=== PATIENT | male | born 1950 | race Two or more races ===

== ENCOUNTER → 2018-03-15 | Outpatient (CLI) | payer MEDICARE, BC | END | disposition home or self-care (01) | LOC: Rad HDHVI 16:04 | PROVIDERS: ATTEND Internal Medicine Cardiovascular Disease | DX: R06.02 Shortness of breath (principal) | CPT/HCPCS: 93306 ==

== ENCOUNTER 2021-05-25 22:59 | Inpatient (IN) | payer MEDICARE ==
[~2021-05-25] VITALS: Ht 172.7 cm; Wt 92.5 kg
[~2021-05-25 22:59] MED LIST: ALLO300T2 PO; ALPR0.254 PO; AMIO200T33 PO; APIX5TAB PO; ATOR-47 PO; CELE100C82 PO; FENO145T27 PO; FINA5TAB4 PO; INDO25CA18 PO; NITR1SPR TL; RAMI5CAP40 PO; SERT50TA19 PO; TAMS0.4C36 PO; TRAM50TA2 PO; ZOLP10TA6 PO
[2021-05-25] MEDS ORDERED: NITROGLYCERIN 0.2MG/HR TOPICAL PATCH TD ONE (23:30)
[2021-05-25 23:51] LABS: Basophils # (auto) 0.1 10 ^3/uL (0-0.2); Eosinophils # (auto) 0.3 10 ^3/uL (0-0.8); Eosinophils % (auto) 3.5 % (0.0-7.0); Hemoglobin 13.5 g/dL (13.5-17.5); Lymphocytes # (auto) 1.4 10 ^3/uL (0.4-5.4); Lymphocytes % (auto) 18.3 % (10.0-50.0); Mean Corpuscular Hemoglobin 29.9 pg (28.0-32.0); Mean Corpuscular Volume 90.6 fL (80.0-100.0); Monocytes # (auto) 0.5 10 ^3/uL (0-1.3); Monocytes % (auto) 6.1 % (0.0-12.0); Neutrophils # (auto) 5.4 10 ^3/uL (1.6-8.6); Neutrophils % (auto) 71.1 % (37.0-80.0); Red Blood Cells 4.52 10^6/uL (4.5-5.90); Red Cell Distribution Width 15.2 % (11.8-14.3); White Blood Cell 7.6 10^3/uL (4.4-10.8)
[2021-05-25 23:53] LABS: Albumin 3.5 g/dL (3.4-5.0); Anion Gap 6 (5-15); Blood Urea Nitrogen 35 mg/dL (7-18); Calcium 9.1 mg/dL (8.5-10.1); Carbon Dioxide 25 mmol/L (21-32); Chloride 105 mmol/L (98-107); Glucose 103 mg/dL (74-106); Magnesium 2.4 mg/dL (1.6-2.6); Potassium 4.6 mmol/L (3.5-5.1); Sodium 136 mmol/L (136-145)
[2021-05-25 23:57] LABS: INR 1.16 (0.9-1.15); Partial Thromboplastin Time 26.5 sec (23.6-33.0)
[2021-05-25 23:59] LABS: Alanine Aminotransferase 14 U/L (16-61); Alkaline Phosphatase 43 U/L (45-117); Aspartate Aminotransferase 17 U/L (15-37); Bilirubin, Total 0.6 mg/dL (0.2-1.0); GFR African American 55 mL/min; GFR Non-African American 46 mL/min
[2021-05-26] MEDS ORDERED: PANTOPRAZOLE 40 MG/10 ML VIAL INJ IV ONE (15:45)
[2021-05-26] MEDS ORDERED: NITROGLYCERIN 0.4 MG SL TAB SL PRN (15:45)
[2021-05-26] MEDS ORDERED: MORPHINE SULFATE INJECTION 2 MG/ML SYRG IV PRN ×2 (15:45)
[2021-05-26] MEDS ORDERED: ONDANSETRON HCL 4 MG/2 ML VIAL IV PRN (15:45)
[2021-05-26] MEDS ORDERED: ALPRAZolam 0.25 MG TAB PO PRN (15:45)
[2021-05-26] MEDS: HYDROcodone-ACET 5/325MG TAB PO PRN (17:11)
[2021-05-26] MEDS: TAMSULOSIN HYDROCHLORIDE 0.4 MG CAP PO SCH (18:34)
[2021-05-26] MEDS: APIXABAN 2.5 MG TAB PO SCH (21:11)
[2021-05-26] MEDS: ATORVASTATIN 20 MG TAB PO SCH (21:11)
[2021-05-26] MEDS: ACETAMINOPHEN 500 MG TAB PO PRN (21:18)
[2021-05-27] VITALS (7 sets, daily range): BP systolic 105–144; BP diastolic 70–88
[2021-05-27] MEDS ORDERED: ADENOSINE 78 MG in GIVE UN-DILUTED 0 ML IV STA (07:20)
[2021-05-27 07:40] LABS: Basophils # (auto) 0.1 10 ^3/uL (0-0.2); Basophils % (auto) 0.9 % (0.0-2.0); Eosinophils # (auto) 0.5 10 ^3/uL (0-0.8); Eosinophils % (auto) 6.1 % (0.0-7.0); Hematocrit 39.6 % (41.0-53.0); Hemoglobin 13.3 g/dL (13.5-17.5); Lymphocytes # (auto) 1.5 10 ^3/uL (0.4-5.4); Lymphocytes % (auto) 18.5 % (10.0-50.0); Mean Corpuscular Hemoglobin 30.5 pg (28.0-32.0); Mean Corpuscular Hgb Conc. 33.5 g/dL (32.0-36.0); Mean Corpuscular Volume 91.1 fL (80.0-100.0); Monocytes # (auto) 0.5 10 ^3/uL (0-1.3); Monocytes % (auto) 6.4 % (0.0-12.0); Neutrophils # (auto) 5.6 10 ^3/uL (1.6-8.6); Neutrophils % (auto) 68.1 % (37.0-80.0); Nucleated Red Blood Cells % 0.1 %; Red Blood Cells 4.35 10^6/uL (4.5-5.90); Red Cell Distribution Width 15.3 % (11.8-14.3); White Blood Cell 8.2 10^3/uL (4.4-10.8)
[2021-05-27 08:22] LABS: BUN/Creatinine Ratio 29.9; Potassium 4.9 mmol/L (3.5-5.1)
[2021-05-27] MEDS: ALLOPURINOL 100 MG TAB PO SCH (10:28)
[2021-05-27] MEDS: SERTRALINE HCL 50 MG TAB PO SCH (10:28)
[2021-05-27] MEDS: PANTOPRAZOLE 40 MG/10 ML VIAL INJ IV SCH (10:28)
[2021-05-27] MEDS: APIXABAN 2.5 MG TAB PO SCH ×2 (10:28→21:27)
[2021-05-27] MEDS: FINASTERIDE 5 MG TAB PO SCH (10:28)
[2021-05-27] MEDS: DIGOXIN 0.125 MG TAB PO SCH (10:45)
[2021-05-27] MEDS: HYDROcodone-ACET 5/325MG TAB PO PRN ×2 (11:03→21:27)
[2021-05-27] MEDS: SODIUM CHLORIDE 0.9% 1,000 ML IV SCH (11:38)
[2021-05-27] MEDS: ACETAMINOPHEN 500 MG TAB PO PRN (14:35)
[2021-05-27] MEDS: TAMSULOSIN HYDROCHLORIDE 0.4 MG CAP PO SCH (17:39)
[2021-05-27] MEDS: CARVEDILOL 3.125 MG TAB PO SCH (21:27)
[2021-05-27] MEDS: ATORVASTATIN 20 MG TAB PO SCH (21:27)
[2021-05-28 05:00] VITALS: BP 122/70
[2021-05-28] MEDS: SODIUM CHLORIDE 0.9% 1,000 ML IV SCH (05:30)
[2021-05-28 05:41] LABS: Calcium 8.5 mg/dL (8.5-10.1); Potassium 4.4 mmol/L (3.5-5.1)
[2021-05-28 05:43] LABS: BUN/Creatinine Ratio 33.3
[2021-05-28 08:30] VITALS: BP 152/56
[2021-05-28 09:00] VITALS: BP 152/56
[2021-05-28] MEDS: PANTOPRAZOLE 40 MG/10 ML VIAL INJ IV SCH (09:51)
[2021-05-28] MEDS: ALLOPURINOL 100 MG TAB PO SCH (09:52)
[2021-05-28] MEDS: SERTRALINE HCL 50 MG TAB PO SCH (09:52)
[2021-05-28] MEDS: APIXABAN 2.5 MG TAB PO SCH (09:52)
[2021-05-28] MEDS: DIGOXIN 0.125 MG TAB PO SCH (09:52)
[2021-05-28] MEDS: FINASTERIDE 5 MG TAB PO SCH (09:52)
[2021-05-28] MEDS: CARVEDILOL 3.125 MG TAB PO SCH (09:53)
[2021-05-28 12:40] VITALS: BP 121/79
[2021-05-28 13:00] VITALS: BP 121/79
== END 2021-05-28 16:25 | disposition home or self-care (01) | DRG 303 ==
LOC: EDBD 22:59 → ER 23:00 → TELE 05-26 15:33 → TELE-CENTR 05-27 03:19
PROVIDERS: ADMIT Internal Medicine; ATTEND Internal Medicine
DX: I25.110 Atherosclerotic heart disease of native coronary artery with unstable angina pectoris (principal); D68.69 Other thrombophilia; I50.22 Chronic systolic (congestive) heart failure; I48.20 Chronic atrial fibrillation, unspecified; I13.0 Hypertensive heart and chronic kidney disease with heart failure and stage 1 through stage 4 chronic kidney disease, or unspecified chronic kidney disease; E66.9 Obesity, unspecified; M10.9 Gout, unspecified; N40.0 Benign prostatic hyperplasia without lower urinary tract symptoms; F32.9 Major depressive disorder, single episode, unspecified; N18.30 Chronic kidney disease, stage 3 unspecified; Z20.822 Contact with and (suspected) exposure to COVID-19; E78.5 Hyperlipidemia, unspecified; F12.90 Cannabis use, unspecified, uncomplicated; Z79.01 Long term (current) use of anticoagulants; Z82.3 Family history of stroke; Z83.3 Family history of diabetes mellitus; Z95.0 Presence of cardiac pacemaker; Z68.31 Body mass index [BMI] 31.0-31.9, adult; K40.90 Unilateral inguinal hernia, without obstruction or gangrene, not specified as recurrent
CPT/HCPCS: 36415; 71045; 71250; 74176; 78452; 80048; 80053; 80162; 83735; 83880; 84443; 84484; 84550; 85025; 85610; 85730; 87426; 93005; 93017; 93306; 96374; C9113; G0378; J0153; J2405

== ENCOUNTER 2022-01-17 11:22 | Inpatient (IN) | payer MEDICARE ==
[~2022-01-17] VITALS: Ht 172.7 cm; Wt 92.2 kg
[2022-01-17] MEDS ORDERED: SODIUM CHLORIDE 0.9% 500 ML IVB ONE (11:45)
[2022-01-17] MEDS ORDERED: METOPROLOL TARTRATE 1MG/1ML-5ML VIAL IV ONE (12:30)
[2022-01-17 12:51] LABS: Basophils # (auto) 0 10 ^3/uL (0-0.2); Basophils % (auto) 0.3 % (0.0-2.0); Eosinophils # (auto) 0.1 10 ^3/uL (0-0.8); Eosinophils % (auto) 1.2 % (0.0-7.0); Hematocrit 40.8 % (41.0-53.0); Hemoglobin 13.6 g/dL (13.5-17.5); Lymphocytes % (auto) 8.6 % (10.0-50.0); Mean Corpuscular Hemoglobin 29.7 pg (28.0-32.0); Mean Corpuscular Hgb Conc. 33.5 g/dL (32.0-36.0); Mean Corpuscular Volume 88.8 fL (80.0-100.0); Monocytes # (auto) 0.5 10 ^3/uL (0-1.3); Monocytes % (auto) 4.5 % (0.0-12.0); Neutrophils # (auto) 9.7 10 ^3/uL (1.6-8.6); Neutrophils % (auto) 85.4 % (37.0-80.0); Red Blood Cells 4.59 10^6/uL (4.5-5.90); Red Cell Distribution Width 15.1 % (11.8-14.3); White Blood Cell 11.3 10^3/uL (4.4-10.8)
[2022-01-17 13:01] LABS: Albumin 3.8 g/dL (3.4-5.0); BUN/Creatinine Ratio 28.6; Calcium 9.3 mg/dL (8.5-10.1); Magnesium 2.5 mg/dL (1.6-2.6); Potassium 4.6 mmol/L (3.5-5.1)
[2022-01-17 13:04] LABS: Bilirubin, Total 0.5 mg/dL (0.2-1.0); Total Protein 8.2 g/dL (6.4-8.2)
[2022-01-17 13:23] LABS: INR 1.19 (0.9-1.15)
[2022-01-17 13:31] LABS: Urine Bacteria NONE SEEN /hpf (None Seen); Urine Blood Negative /uL (Negative); Urine WBC 1 /hpf (0 - 3)
[2022-01-17] MEDS ORDERED: ONDANSETRON HCL 4 MG/2 ML VIAL IV PRN (20:45)
[2022-01-17] MEDS ORDERED: ACETAMINOPHEN 325 MG TAB PO PRN (20:45)
[2022-01-17] MEDS: SODIUM CHLORIDE 0.9% 1,000 ML IV SCH (20:56)
[2022-01-17] MEDS ORDERED: NITROGLYCERIN 0.4 MG SL TAB SL PRN (21:45)
[2022-01-17] MEDS ORDERED: MORPHINE SULFATE INJECTION 2 MG/ML SYRG IV PRN (21:45)
[2022-01-17] MEDS: APIXABAN 5 MG TAB PO SCH (22:10)
[2022-01-17] MEDS: METOPROLOL TARTRATE 50 MG TAB PO SCH (22:17)
[2022-01-17] MEDS ORDERED: cefTRIAXone 1GM/50ML D5W 50 ML IV ONE (23:00)
[2022-01-17 23:15] VITALS: BP 133/81
[2022-01-18 05:00] VITALS: BP 121/79
[2022-01-18 06:15] LABS: Basophils # (auto) 0.1 10 ^3/uL (0-0.2); Basophils % (auto) 0.7 % (0.0-2.0); Eosinophils # (auto) 0.3 10 ^3/uL (0-0.8); Eosinophils % (auto) 3.2 % (0.0-7.0); Hemoglobin 12.9 g/dL (13.5-17.5); Lymphocytes # (auto) 1.4 10 ^3/uL (0.4-5.4); Lymphocytes % (auto) 17.3 % (10.0-50.0); Mean Corpuscular Hemoglobin 30.2 pg (28.0-32.0); Mean Corpuscular Hgb Conc. 33.9 g/dL (32.0-36.0); Monocytes # (auto) 0.7 10 ^3/uL (0-1.3); Monocytes % (auto) 8.8 % (0.0-12.0); Neutrophils # (auto) 5.8 10 ^3/uL (1.6-8.6); Nucleated Red Blood Cells % 0.1 %; Red Blood Cells 4.26 10^6/uL (4.5-5.90); Red Cell Distribution Width 14.7 % (11.8-14.3); White Blood Cell 8.2 10^3/uL (4.4-10.8)
[2022-01-18 06:22] LABS: Potassium 4.2 mmol/L (3.5-5.1)
[2022-01-18 06:47] LABS: Albumin 3.3 g/dL (3.4-5.0); BUN/Creatinine Ratio 31.7; Bilirubin, Total 0.4 mg/dL (0.2-1.0); Calcium 8.7 mg/dL (8.5-10.1); Total Protein 7.2 g/dL (6.4-8.2)
[2022-01-18 08:00] VITALS: BP 113/71
[2022-01-18 09:00] VITALS: BP 113/71
[2022-01-18] MEDS: METOPROLOL TARTRATE 50 MG TAB PO SCH ×2 (10:16→21:13)
[2022-01-18] MEDS: APIXABAN 5 MG TAB PO SCH (10:16)
[2022-01-18] MEDS: HYDROcodone-ACET 5/325MG TAB PO PRN ×2 (10:24→21:14)
[2022-01-18] MEDS: PANTOPRAZOLE 40 MG TAB PO SCH ×2 (12:56→21:13)
[2022-01-18] MEDS: SUCRALFATE 1 GM/10 ML ORAL SUSP PO SCH ×3 (12:56→21:13)
[2022-01-18 13:00] VITALS: BP 113/71
[2022-01-18] MEDS: SODIUM CHLORIDE 0.9% 1,000 ML IV SCH (15:11)
[2022-01-18 17:00] VITALS: BP 130/84
[2022-01-18] MEDS: TAMSULOSIN HYDROCHLORIDE 0.4 MG CAP PO SCH (17:56)
[2022-01-18 22:00] VITALS: BP 111/77
[2022-01-19 05:00] VITALS: BP 134/76
[2022-01-19] MEDS: SODIUM CHLORIDE 0.9% 1,000 ML IV SCH ×2 (06:08→22:45)
[2022-01-19] MEDS: SUCRALFATE 1 GM/10 ML ORAL SUSP PO SCH ×4 (06:08→21:29)
[2022-01-19] MEDS: HYDROcodone-ACET 5/325MG TAB PO PRN ×2 (06:09→12:17)
[2022-01-19] MEDS: METOPROLOL TARTRATE 50 MG TAB PO SCH ×2 (08:24→21:29)
[2022-01-19] MEDS: PANTOPRAZOLE 40 MG TAB PO SCH ×2 (08:24→21:29)
[2022-01-19] MEDS: SERTRALINE HCL 50 MG TAB PO SCH (08:24)
[2022-01-19 09:00] VITALS: BP 107/73
[2022-01-19 12:10] VITALS: BP 136/88
[2022-01-19] MEDS: TAMSULOSIN HYDROCHLORIDE 0.4 MG CAP PO SCH (16:47)
[2022-01-19 17:00] VITALS: BP 130/72
[2022-01-19 22:00] VITALS: BP 127/61
[2022-01-19] MEDS ORDERED: TEMAZEPAM 15 MG CAP PO ONE (22:00)
[2022-01-20 05:00] VITALS: BP 123/73
[2022-01-20] MEDS: SUCRALFATE 1 GM/10 ML ORAL SUSP PO SCH ×4 (06:43→21:46)
[2022-01-20 08:21] VITALS: BP 123/86
[2022-01-20] MEDS: METOPROLOL TARTRATE 50 MG TAB PO SCH ×2 (08:53→21:47)
[2022-01-20] MEDS: SERTRALINE HCL 50 MG TAB PO SCH (08:53)
[2022-01-20] MEDS: PANTOPRAZOLE 40 MG TAB PO SCH ×2 (08:53→21:47)
[2022-01-20] MEDS: HYDROcodone-ACET 5/325MG TAB PO PRN (09:00)
[2022-01-20] MEDS ORDERED: LORazepam 0.5 MG TAB PO PRN (12:00)
[2022-01-20 13:18] VITALS: BP 115/68
[2022-01-20] MEDS: SODIUM CHLORIDE 0.9% 1,000 ML IV SCH (15:25)
[2022-01-20 16:43] VITALS: BP 153/95
[2022-01-20] MEDS: TAMSULOSIN HYDROCHLORIDE 0.4 MG CAP PO SCH (18:06)
[2022-01-20] MEDS ORDERED: TEMAZEPAM 15 MG CAP PO ONE (22:00)
[2022-01-20 22:19] VITALS: BP 150/90
[2022-01-21] MEDS: HYDROcodone-ACET 5/325MG TAB PO PRN ×2 (05:06→21:40)
[2022-01-21 05:13] VITALS: BP 141/77
[2022-01-21] MEDS: SUCRALFATE 1 GM/10 ML ORAL SUSP PO SCH ×4 (06:42→21:19)
[2022-01-21] MEDS: SODIUM CHLORIDE 0.9% 1,000 ML IV SCH (09:06)
[2022-01-21] MEDS: SERTRALINE HCL 50 MG TAB PO SCH (09:07)
[2022-01-21] MEDS: PANTOPRAZOLE 40 MG TAB PO SCH ×2 (09:08→21:19)
[2022-01-21] MEDS: METOPROLOL TARTRATE 50 MG TAB PO SCH ×2 (09:08→21:19)
[2022-01-21 09:37] VITALS: BP 148/94
[2022-01-21 12:32] VITALS: BP 155/101
[2022-01-21] MEDS ORDERED: fentaNYL CITRATE 100 MCG/2 ML VL ONE (14:07)
[2022-01-21] MEDS ORDERED: MIDAZOLAM HCL 2MG/2ML 2ml VIAL (1mg/ml) ONE (14:07)
[2022-01-21] MEDS ORDERED: PROPOFOL 10 MG/ML 20 ML IV ONE (14:26)
[2022-01-21] MEDS ORDERED: ONDANSETRON HCL 4 MG/2 ML VIAL IV PRN (14:45)
[2022-01-21 16:32] VITALS: BP 163/108
[2022-01-21] MEDS: TAMSULOSIN HYDROCHLORIDE 0.4 MG CAP PO SCH (17:09)
[2022-01-21] MEDS ORDERED: TEMAZEPAM 15 MG CAP PO ONE ×3 (18:30→22:00)
[2022-01-21 22:04] VITALS: BP 151/89
[2022-01-22] MEDS: HYDROcodone-ACET 5/325MG TAB PO PRN ×2 (02:53→06:58)
[2022-01-22] MEDS: SODIUM CHLORIDE 0.9% 1,000 ML IV SCH (03:46)
[2022-01-22 04:47] VITALS: BP 133/83
[2022-01-22] MEDS: SUCRALFATE 1 GM/10 ML ORAL SUSP PO SCH ×2 (06:41→12:16)
[2022-01-22] MEDS: PANTOPRAZOLE 40 MG TAB PO SCH (09:06)
[2022-01-22] MEDS: METOPROLOL TARTRATE 50 MG TAB PO SCH (09:06)
[2022-01-22] MEDS: SERTRALINE HCL 50 MG TAB PO SCH (09:07)
[2022-01-22 09:11] VITALS: BP 151/94
[2022-01-22] MEDS ORDERED: PANT40T PO (11:40)
[2022-01-22] MEDS ORDERED: SUCR1TAB22 OR (11:40)
[2022-01-22 12:47] VITALS: BP 156/88
[2022-01-22 13:34] VITALS: BP 128/67
[2022-01-22 14:34] LABS: Basophils # (auto) 0 10 ^3/uL (0-0.2); Basophils % (auto) 0.5 % (0.0-2.0); Eosinophils # (auto) 0.5 10 ^3/uL (0-0.8); Eosinophils % (auto) 5.4 % (0.0-7.0); Hematocrit 38.3 % (41.0-53.0); Hemoglobin 12.8 g/dL (13.5-17.5); Lymphocytes # (auto) 1.4 10 ^3/uL (0.4-5.4); Mean Corpuscular Hgb Conc. 33.5 g/dL (32.0-36.0); Mean Corpuscular Volume 89.4 fL (80.0-100.0); Monocytes # (auto) 0.6 10 ^3/uL (0-1.3); Monocytes % (auto) 5.6 % (0.0-12.0); Neutrophils # (auto) 7.5 10 ^3/uL (1.6-8.6); Neutrophils % (auto) 74.5 % (37.0-80.0); Red Blood Cells 4.28 10^6/uL (4.5-5.90); Red Cell Distribution Width 14.8 % (11.8-14.3); White Blood Cell 10.1 10^3/uL (4.4-10.8)
== END 2022-01-22 14:50 | disposition home or self-care (01) | DRG 384 ==
LOC: ER 11:22 → EDSEX 11:22 → EDBD 11:22 → OVERFLOW 21:32 → WEST WING 22:45
PROVIDERS: ADMIT Nurse Practitioner Family; ATTEND Family Medicine
PROC: 0DB68ZX Excision of Stomach, Via Natural or Artificial Opening Endoscopic, Diagnostic (ICD-10-PCS; 2022-01-21)
PROC: 0DB98ZX Excision of Duodenum, Via Natural or Artificial Opening Endoscopic, Diagnostic (ICD-10-PCS; principal; 2022-01-21 14:08)
DX: K26.9 Duodenal ulcer, unspecified as acute or chronic, without hemorrhage or perforation (principal); I48.20 Chronic atrial fibrillation, unspecified; N17.9 Acute kidney failure, unspecified; K29.80 Duodenitis without bleeding; K29.70 Gastritis, unspecified, without bleeding; D72.829 Elevated white blood cell count, unspecified; E11.9 Type 2 diabetes mellitus without complications; E78.5 Hyperlipidemia, unspecified; K31.7 Polyp of stomach and duodenum; F41.9 Anxiety disorder, unspecified; I10 Essential (primary) hypertension; K59.00 Constipation, unspecified; E66.9 Obesity, unspecified; Z20.822 Contact with and (suspected) exposure to COVID-19; F32.A Depression, unspecified; K44.9 Diaphragmatic hernia without obstruction or gangrene; M10.9 Gout, unspecified; N40.0 Benign prostatic hyperplasia without lower urinary tract symptoms; Z82.3 Family history of stroke; Z79.01 Long term (current) use of anticoagulants; Z91.14 Patient's other noncompliance with medication regimen; Z68.30 Body mass index [BMI] 30.0-30.9, adult; Z83.3 Family history of diabetes mellitus; Z90.49 Acquired absence of other specified parts of digestive tract; Z95.0 Presence of cardiac pacemaker; Z79.84 Long term (current) use of oral hypoglycemic drugs
CPT/HCPCS: 36415; 71045; 74176; 80053; 81001; 83605; 83690; 83735; 85025; 85610; 85730; 87081; 93005; 96361; 96374; G0378; J0696; J2250; J2405; J2704

== ENCOUNTER 2022-02-10 19:38 | Inpatient (IN) | payer MEDICARE ==
[~2022-02-10] VITALS: Ht 177.8 cm; Wt 92.8 kg
[~2022-02-10 19:38] MED LIST changes: +PANT40T PO; +SUCR1TAB22 OR
[2022-02-10] MEDS ORDERED: SODIUM CHLORIDE 0.9% 1,000 ML IV ONE (19:45)
[2022-02-10 21:14] LABS: Basophils # (auto) 0 10 ^3/uL (0-0.2); Basophils % (auto) 0.5 % (0.0-2.0); Eosinophils # (auto) 0.3 10 ^3/uL (0-0.8); Eosinophils % (auto) 3.9 % (0.0-7.0); Hematocrit 36.3 % (41.0-53.0); Hemoglobin 12.2 g/dL (13.5-17.5); Lymphocytes # (auto) 1.9 10 ^3/uL (0.4-5.4); Lymphocytes % (auto) 24.3 % (10.0-50.0); Mean Corpuscular Hemoglobin 29.7 pg (28.0-32.0); Mean Corpuscular Hgb Conc. 33.5 g/dL (32.0-36.0); Mean Corpuscular Volume 88.6 fL (80.0-100.0); Monocytes # (auto) 0.5 10 ^3/uL (0-1.3); Monocytes % (auto) 6.8 % (0.0-12.0); Neutrophils # (auto) 5.1 10 ^3/uL (1.6-8.6); Neutrophils % (auto) 64.5 % (37.0-80.0); Red Cell Distribution Width 14.2 % (11.8-14.3); White Blood Cell 7.8 10^3/uL (4.4-10.8)
[2022-02-10 21:27] LABS: Albumin 3.4 g/dL (3.4-5.0); Anion Gap 9 (5-15); Blood Urea Nitrogen 27 mg/dL (7-18); Calcium 8.7 mg/dL (8.5-10.1); Carbon Dioxide 20 mmol/L (21-32); Chloride 107 mmol/L (98-107); Glucose 79 mg/dL (74-106); Potassium 4.4 mmol/L (3.5-5.1); Sodium 136 mmol/L (136-145)
[2022-02-10 21:28] LABS: BUN/Creatinine Ratio 22.1; Blood Alcohol < 3.0 mg/dL (0-5); GFR African American 75 mL/min; GFR Non-African American 62 mL/min
[2022-02-10 21:31] LABS: Alanine Aminotransferase 13 U/L (16-61); Alkaline Phosphatase 47 U/L (45-117); Aspartate Aminotransferase 14 U/L (15-37); Bilirubin, Total 0.5 mg/dL (0.2-1.0); Total Protein 6.8 g/dL (6.4-8.2)
[2022-02-10] MEDS ORDERED: METOPROLOL TARTRATE 25 MG TAB PO ONE (22:15)
[2022-02-10] MEDS ORDERED: CARVEDILOL 12.5 MG TAB PO ONE (23:00)
[2022-02-11] MEDS: LORazepam 2MG/ML-1ML VIAL IV PRN ×4 (00:59→20:47)
[2022-02-11 01:06] LABS: Urine Bacteria NONE SEEN /hpf (None Seen); Urine Blood Negative /uL (Negative); Urine WBC 1 /hpf (0 - 3)
[2022-02-11 01:20] LABS: Alcohol, Urine < 3.0 mg/dL (0-10); Amphetamine Screen, Urine NEGATIVE (NEGATIVE); Barbiturate Scree,Urine NEGATIVE (NEGATIVE); Benzodiazephine Screen, Urine POSITIVE (NEGATIVE); Cannabinoid Screen, Urine NEGATIVE (NEGATIVE); Cocaine Screen, Urine NEGATIVE (NEGATIVE); Opiate Scree,Urine NEGATIVE (NEGATIVE); Phencyclidine Screen, Urine NEGATIVE (NEGATIVE)
[2022-02-11] MEDS ORDERED: MORPHINE SULFATE INJ 2 MG/ml SYRG IV PRN (02:45)
[2022-02-11] MEDS ORDERED: NITROGLYCERIN 0.4 MG SL TAB SL PRN (02:45)
[2022-02-11] MEDS: ACETAMINOPHEN 325 MG TAB PO PRN ×3 (06:16→13:06)
[2022-02-11] MEDS ORDERED: CARVEDILOL 12.5 MG TAB PO SCH (10:00)
[2022-02-11] MEDS ORDERED: APIXABAN 5 MG TAB PO SCH (10:00)
[2022-02-11] MEDS ORDERED: DIGOXIN 0.125 MG TAB PO SCH (10:00)
[2022-02-11] MEDS: SERTRALINE HCL 50 MG TAB PO SCH (10:55)
[2022-02-11] MEDS: PANTOPRAZOLE 40 MG TAB PO SCH (10:56)
[2022-02-11] MEDS: RAMIPRIL 2.5 MG CAP PO SCH (11:14)
[2022-02-11 11:43] LABS: Basophils # (auto) 0.1 10 ^3/uL (0-0.2); Basophils % (auto) 0.9 % (0.0-2.0); Eosinophils # (auto) 0.3 10 ^3/uL (0-0.8); Eosinophils % (auto) 3.9 % (0.0-7.0); Hematocrit 38.6 % (41.0-53.0); Hemoglobin 12.4 g/dL (13.5-17.5); Lymphocytes # (auto) 1.1 10 ^3/uL (0.4-5.4); Lymphocytes % (auto) 15.3 % (10.0-50.0); Mean Corpuscular Hemoglobin 29.5 pg (28.0-32.0); Mean Corpuscular Hgb Conc. 32.1 g/dL (32.0-36.0); Mean Corpuscular Volume 91.9 fL (80.0-100.0); Monocytes # (auto) 0.5 10 ^3/uL (0-1.3); Monocytes % (auto) 6.7 % (0.0-12.0); Neutrophils # (auto) 5.4 10 ^3/uL (1.6-8.6); Neutrophils % (auto) 73.2 % (37.0-80.0); Nucleated Red Blood Cells % 0.1 %; Red Blood Cells 4.19 10^6/uL (4.5-5.90); Red Cell Distribution Width 15.2 % (11.8-14.3); White Blood Cell 7.4 10^3/uL (4.4-10.8)
[2022-02-11 12:09] LABS: BUN/Creatinine Ratio 19.7; Calcium 9.1 mg/dL (8.5-10.1)
[2022-02-11] MEDS ORDERED: FENO160T8 PO (13:23)
[2022-02-11] MEDS ORDERED: FAMO-12 PO (13:23)
[2022-02-11] MEDS ORDERED: DUTA1CAP29 PO (13:23)
[2022-02-11] MEDS ORDERED: FLU01T GT (13:23)
[2022-02-11] MEDS ORDERED: METO25TA5 PO (13:23)
[2022-02-11] MEDS ORDERED: MEMA7CAP8 PO (13:23)
[2022-02-11] MEDS ORDERED: CARV12.544 PO (13:23)
[2022-02-11 13:51] VITALS: BP 129/73
[2022-02-11] MEDS ORDERED: PNEUMOCOCCAL VACC POLYS 25 MCG/0.5 ML VIAL IM ONE (18:30)
[2022-02-11 22:00] VITALS: BP 143/84
[2022-02-11] MEDS: AMIODARONE HCL 200 MG TAB PO SCH (22:09)
[2022-02-11] MEDS: APIXABAN 5 MG TAB PO SCH (22:10)
[2022-02-11] MEDS: ATORVASTATIN 20 MG TAB PO SCH (22:11)
[2022-02-11] MEDS: METOPROLOL SUCCINATE XL 50 MG TAB PO SCH (22:12)
[2022-02-11] MEDS: TEMAZEPAM 15 MG CAP PO PRN (22:13)
[2022-02-12 05:00] VITALS: BP 123/66
[2022-02-12] MEDS: LORazepam 2MG/ML-1ML VIAL IV PRN ×3 (05:48→18:28)
[2022-02-12 06:02] LABS: Basophils # (auto) 0.1 10 ^3/uL (0-0.2); Basophils % (auto) 0.7 % (0.0-2.0); Eosinophils # (auto) 0.6 10 ^3/uL (0-0.8); Eosinophils % (auto) 7.4 % (0.0-7.0); Hematocrit 38.1 % (41.0-53.0); Hemoglobin 12.5 g/dL (13.5-17.5); Lymphocytes # (auto) 1.7 10 ^3/uL (0.4-5.4); Lymphocytes % (auto) 23.3 % (10.0-50.0); Mean Corpuscular Hemoglobin 29.4 pg (28.0-32.0); Mean Corpuscular Hgb Conc. 32.7 g/dL (32.0-36.0); Mean Corpuscular Volume 89.9 fL (80.0-100.0); Monocytes # (auto) 0.6 10 ^3/uL (0-1.3); Monocytes % (auto) 8.5 % (0.0-12.0); Neutrophils # (auto) 4.5 10 ^3/uL (1.6-8.6); Neutrophils % (auto) 60.1 % (37.0-80.0); Nucleated Red Blood Cells % 0.1 %; Red Blood Cells 4.24 10^6/uL (4.5-5.90); Red Cell Distribution Width 14.4 % (11.8-14.3); White Blood Cell 7.5 10^3/uL (4.4-10.8)
[2022-02-12 06:16] LABS: BUN/Creatinine Ratio 22.2; Calcium 9.1 mg/dL (8.5-10.1); Potassium 4.2 mmol/L (3.5-5.1)
[2022-02-12 09:00] VITALS: BP 122/82
[2022-02-12] MEDS: RAMIPRIL 2.5 MG CAP PO SCH (09:35)
[2022-02-12] MEDS: APIXABAN 5 MG TAB PO SCH ×2 (09:35→22:29)
[2022-02-12] MEDS: AMIODARONE HCL 200 MG TAB PO SCH ×2 (09:35→22:29)
[2022-02-12] MEDS: PANTOPRAZOLE 40 MG TAB PO SCH (09:36)
[2022-02-12] MEDS: METOPROLOL SUCCINATE XL 50 MG TAB PO SCH ×2 (09:36→22:30)
[2022-02-12] MEDS: ONDANSETRON HCL 4 MG/2 ML VIAL IV PRN ×2 (09:36→14:15)
[2022-02-12] MEDS: SERTRALINE HCL 50 MG TAB PO SCH (09:36)
[2022-02-12 13:00] VITALS: BP 131/84
[2022-02-12 17:00] VITALS: BP 134/83
[2022-02-12] MEDS: ACETAMINOPHEN 325 MG TAB PO PRN (17:48)
[2022-02-12 22:09] VITALS: BP 105/64
[2022-02-12] MEDS: ATORVASTATIN 20 MG TAB PO SCH (22:30)
[2022-02-12] MEDS: TEMAZEPAM 15 MG CAP PO PRN (22:31)
[2022-02-13 05:14] VITALS: BP 123/70
[2022-02-13 06:04] LABS: Basophils # (auto) 0.1 10 ^3/uL (0-0.2); Basophils % (auto) 0.9 % (0.0-2.0); Eosinophils # (auto) 0.4 10 ^3/uL (0-0.8); Eosinophils % (auto) 5.4 % (0.0-7.0); Hematocrit 36.6 % (41.0-53.0); Hemoglobin 12.1 g/dL (13.5-17.5); Lymphocytes # (auto) 1.8 10 ^3/uL (0.4-5.4); Lymphocytes % (auto) 25.4 % (10.0-50.0); Mean Corpuscular Hemoglobin 29.3 pg (28.0-32.0); Mean Corpuscular Hgb Conc. 33.2 g/dL (32.0-36.0); Mean Corpuscular Volume 88.2 fL (80.0-100.0); Monocytes # (auto) 0.5 10 ^3/uL (0-1.3); Monocytes % (auto) 6.8 % (0.0-12.0); Neutrophils # (auto) 4.4 10 ^3/uL (1.6-8.6); Neutrophils % (auto) 61.5 % (37.0-80.0); Nucleated Red Blood Cells % 0.1 %; Red Blood Cells 4.14 10^6/uL (4.5-5.90); Red Cell Distribution Width 14.3 % (11.8-14.3); White Blood Cell 7.2 10^3/uL (4.4-10.8)
[2022-02-13 06:24] LABS: BUN/Creatinine Ratio 24.4; Calcium 9.3 mg/dL (8.5-10.1); Potassium 4.3 mmol/L (3.5-5.1)
[2022-02-13 08:29] VITALS: BP 130/88
[2022-02-13] MEDS: METOPROLOL SUCCINATE XL 50 MG TAB PO SCH (10:00)
[2022-02-13] MEDS: AMIODARONE HCL 200 MG TAB PO SCH (10:00)
[2022-02-13] MEDS: PANTOPRAZOLE 40 MG TAB PO SCH (10:00)
[2022-02-13] MEDS: RAMIPRIL 2.5 MG CAP PO SCH (10:00)
[2022-02-13] MEDS: SERTRALINE HCL 50 MG TAB PO SCH (10:00)
[2022-02-13] MEDS: APIXABAN 5 MG TAB PO SCH (10:00)
[2022-02-13] MEDS ORDERED: SERT50TA PO (10:18)
[2022-02-13 12:50] VITALS: BP 129/74
[2022-02-13] MEDS ORDERED: PNEUMOCOCCAL VACC POLYS 25 MCG/0.5 ML VIAL IM ONE ×2 (14:45)
[2022-02-13 17:00] VITALS: BP 128/86
[2022-02-13 17:02] VITALS: BP 129/74
[2022-02-13 17:10] VITALS: BP 129/74
== END 2022-02-13 18:28 | disposition home health service (06) | DRG 309 ==
LOC: EDBD 19:38 → ER 19:38 → TELE 02-11 02:42 → TELE-EAST 02-11 17:29
PROVIDERS: ADMIT Nurse Practitioner; ATTEND Internal Medicine Pulmonary Disease
DX: I48.20 Chronic atrial fibrillation, unspecified (principal); R45.851 Suicidal ideations; I49.5 Sick sinus syndrome; I10 Essential (primary) hypertension; M10.9 Gout, unspecified; E78.5 Hyperlipidemia, unspecified; Z20.822 Contact with and (suspected) exposure to COVID-19; F99 Mental disorder, not otherwise specified; F32.A Depression, unspecified; Z79.01 Long term (current) use of anticoagulants; Z79.899 Other long term (current) drug therapy; Z90.49 Acquired absence of other specified parts of digestive tract; Z91.14 Patient's other noncompliance with medication regimen
CPT/HCPCS: 36415; 71045; 80048; 80053; 80307; 80320; 80329; 81001; 84484; 85025; 93005; 96361; 96374; 99291; G0378; J2405

== ENCOUNTER 2022-04-16 16:21 | Emergency (ER) | payer OTHER, MEDICARE ==
[~2022-04-16] VITALS: Ht 165.1 cm; Wt 75.0 kg
[~2022-04-16 16:21] MED LIST changes: +CARV12.544 PO; +DUTA1CAP29 PO; +FAMO-12 PO; +FENO160T8 PO; +FLU01T GT; +MEMA7CAP8 PO; +METO25TA5 PO; +SERT50TA PO
[2022-04-16 16:25] VITALS: BP 140/75
== END 2022-04-17 04:19 | disposition left against medical advice (07) ==
LOC: EDBD 16:21 → EDUNIT# 16:21 → ER 16:21
DX: R10.2 Pelvic and perineal pain (principal); Z53.21 Procedure and treatment not carried out due to patient leaving prior to being seen by health care provider

== ENCOUNTER 2022-04-18 18:29 | Inpatient (IN) | payer OTHER, MEDICARE ==
[~2022-04-18] VITALS: Ht 172.7 cm; Wt 92.7 kg
[2022-04-18] MEDS ORDERED: SODIUM CHLORIDE 0.9% 1,000 ML IV ONE (19:30)
[2022-04-18] MEDS ORDERED: HYDROmorphone HCL 2 MG/ML VL/or syr IV ONE (19:30)
[2022-04-18] MEDS ORDERED: ONDANSETRON HCL 4 MG/2 ML VIAL IV ONE (19:30)
[2022-04-18 19:55] LABS: Basophils # (auto) 0.1 10 ^3/uL (0-0.2); Eosinophils # (auto) 0.1 10 ^3/uL (0-0.8); Eosinophils % (auto) 0.8 % (0.0-7.0); Hematocrit 35.3 % (41.0-53.0); Hemoglobin 11.1 g/dL (13.5-17.5); Lymphocytes # (auto) 1.2 10 ^3/uL (0.4-5.4); Lymphocytes % (auto) 9.2 % (10.0-50.0); Mean Corpuscular Hemoglobin 27.6 pg (28.0-32.0); Mean Corpuscular Hgb Conc. 31.5 g/dL (32.0-36.0); Mean Corpuscular Volume 87.5 fL (80.0-100.0); Monocytes # (auto) 0.8 10 ^3/uL (0-1.3); Neutrophils # (auto) 10.7 10 ^3/uL (1.6-8.6); Red Blood Cells 4.03 10^6/uL (4.5-5.90); Red Cell Distribution Width 15.2 % (11.8-14.3); White Blood Cell 12.8 10^3/uL (4.4-10.8)
[2022-04-18 20:08] LABS: INR 1.24 (0.9-1.15); Partial Thromboplastin Time 34.2 sec (24.6-33.4)
[2022-04-18 20:24] LABS: Albumin 3.3 g/dL (3.4-5.0); Calcium 9.8 mg/dL (8.5-10.1); Potassium 3.9 mmol/L (3.5-5.1)
[2022-04-18 20:26] LABS: Bilirubin, Total 0.8 mg/dL (0.2-1.0); Total Protein 8.6 g/dL (6.4-8.2)
[2022-04-18] MEDS ORDERED: ACETAMINOPHEN 325 MG TAB PO PRN (22:00)
[2022-04-18] MEDS ORDERED: D5W/SOD CHLO 0.9% 1,000 ML IV SCH (22:00)
[2022-04-18] MEDS ORDERED: ONDANSETRON HCL 4 MG/2 ML VIAL IV PRN (22:00)
[2022-04-18] MEDS ORDERED: cefTRIAXone 1GM/50ML D5W 50 ML IV ONE (22:00)
[2022-04-18] MEDS ORDERED: MORPHINE SULFATE INJ 2 MG/ml SYRG IV PRN (22:30)
[2022-04-18] MEDS ORDERED: NITROGLYCERIN 0.4 MG SL TAB SL PRN (22:30)
[2022-04-18] MEDS: METOPROLOL TARTRATE 25 MG TAB PO SCH (23:47)
[2022-04-18] MEDS: HYDROmorphone HCL 2 MG/ML VL/or syr IV PRN (23:48)
[2022-04-19] MEDS: HYDROcodone-ACET 5/325MG TAB PO PRN ×3 (03:10→15:43)
[2022-04-19 06:13] LABS: Basophils # (auto) 0 10 ^3/uL (0-0.2); Basophils % (auto) 0.1 % (0.0-2.0); Eosinophils # (auto) 0 10 ^3/uL (0-0.8); Eosinophils % (auto) 0.3 % (0.0-7.0); Hematocrit 32.4 % (41.0-53.0); Hemoglobin 10.2 g/dL (13.5-17.5); Lymphocytes # (auto) 0.7 10 ^3/uL (0.4-5.4); Lymphocytes % (auto) 6.5 % (10.0-50.0); Mean Corpuscular Hemoglobin 27.7 pg (28.0-32.0); Mean Corpuscular Hgb Conc. 31.5 g/dL (32.0-36.0); Mean Corpuscular Volume 87.9 fL (80.0-100.0); Monocytes # (auto) 0.5 10 ^3/uL (0-1.3); Monocytes % (auto) 4.1 % (0.0-12.0); Neutrophils # (auto) 10.1 10 ^3/uL (1.6-8.6); Red Blood Cells 3.69 10^6/uL (4.5-5.90); Red Cell Distribution Width 14.9 % (11.8-14.3); White Blood Cell 11.4 10^3/uL (4.4-10.8)
[2022-04-19 06:30] LABS: Potassium 3.8 mmol/L (3.5-5.1)
[2022-04-19 06:37] LABS: Albumin 2.7 g/dL (3.4-5.0); BUN/Creatinine Ratio 35.5; Bilirubin, Total 0.7 mg/dL (0.2-1.0); Calcium 8.8 mg/dL (8.5-10.1); Total Protein 7.5 g/dL (6.4-8.2)
[2022-04-19] MEDS ORDERED: ASPirin 81 mg TAB PO SCH (10:00)
[2022-04-19] MEDS ORDERED: ENOXAPARIN SOD 40 MG/0.4 ML SYRINGE SC SCH (10:00)
[2022-04-19] MEDS ORDERED: LORazepam 0.5 MG TAB PO ONE ×2 (11:00→15:45)
[2022-04-19] MEDS: FAMOTIDINE (10MG/ML) 2ML VL IV SCH (11:27)
[2022-04-19] MEDS: METOPROLOL TARTRATE 25 MG TAB PO SCH ×2 (11:27→22:00)
[2022-04-19 17:00] VITALS: BP 134/68
[2022-04-19] MEDS ORDERED: DIGO0.12 PO (17:29)
[2022-04-19 22:00] VITALS: BP 135/75
[2022-04-19] MEDS: cefTRIAXone 1GM/50ML D5W 50 ML IV SCH (22:00)
[2022-04-19 22:41] LABS: Urine Bacteria FEW /hpf (None Seen); Urine Blood 3+ /uL (Negative); Urine Mucus FEW (None Seen); Urine Specific Gravity 1.016 (1.001-1.035); Urine WBC 10 /hpf (0 - 3)
[2022-04-19] MEDS: LORazepam 0.5 MG TAB PO PRN (23:41)
[2022-04-19] MEDS: HYDROmorphone HCL 2 MG/ML VL/or syr IV PRN (23:58)
[2022-04-20] VITALS (11 sets, daily range): BP systolic 85–150; BP diastolic 63–92
[2022-04-20 05:52] LABS: BUN/Creatinine Ratio 28.7; Calcium 9.1 mg/dL (8.5-10.1); Potassium 4.1 mmol/L (3.5-5.1)
[2022-04-20] MEDS: FAMOTIDINE (10MG/ML) 2ML VL IV SCH (10:00)
[2022-04-20] MEDS: METOPROLOL TARTRATE 25 MG TAB PO SCH ×2 (10:00→21:58)
[2022-04-20] MEDS ORDERED: TRANEXAMIC ACID 20 ML ONE (11:16)
[2022-04-20] MEDS ORDERED: VANCOMYCIN HCL 1000 MG VL ONE (11:17)
[2022-04-20 12:07] LABS: Basophils # (auto) 0.1 10 ^3/uL (0-0.2); Basophils % (auto) 0.4 % (0.0-2.0); Eosinophils # (auto) 0.2 10 ^3/uL (0-0.8); Eosinophils % (auto) 1.6 % (0.0-7.0); Hematocrit 29.6 % (41.0-53.0); Hemoglobin 9.5 g/dL (13.5-17.5); Lymphocytes # (auto) 1.2 10 ^3/uL (0.4-5.4); Lymphocytes % (auto) 10.8 % (10.0-50.0); Mean Corpuscular Hemoglobin 28.2 pg (28.0-32.0); Mean Corpuscular Volume 87.9 fL (80.0-100.0); Monocytes # (auto) 0.8 10 ^3/uL (0-1.3); Monocytes % (auto) 7.1 % (0.0-12.0); Neutrophils # (auto) 9.3 10 ^3/uL (1.6-8.6); Neutrophils % (auto) 80.1 % (37.0-80.0); Nucleated Red Blood Cells % 0.1 %; Red Blood Cells 3.36 10^6/uL (4.5-5.90); Red Cell Distribution Width 15.2 % (11.8-14.3); White Blood Cell 11.6 10^3/uL (4.4-10.8)
[2022-04-20] MEDS ORDERED: fentaNYL CITRATE 100 MCG/2 ML VL ONE (12:38)
[2022-04-20] MEDS ORDERED: MIDAZOLAM HCL 2MG/2ML 2ml VIAL (1mg/ml) ONE (12:39)
[2022-04-20] MEDS ORDERED: ROPIVACAINE 0.5% (5MG/ML) 20ML AMPULE IJ ONE (12:56)
[2022-04-20] MEDS ORDERED: MORPHINE SULF PF 5 MG/10 ML VIAL ONE (12:58)
[2022-04-20] MEDS ORDERED: ceFAZolin 1GM/50ML 100 ML IV ONE (13:09)
[2022-04-20] MEDS ORDERED: TETRACAINE 1% INJ 2 ML VIAL IJ ONE ×2 (13:19→13:20)
[2022-04-20] MEDS ORDERED: NALOXONE HCL 0.4 MG/ML VIAL IV PRN (14:15)
[2022-04-20] MEDS ORDERED: ePHEDrine SULFATE 50 MG/ML AMP IV PRN (14:15)
[2022-04-20] MEDS ORDERED: NALBUPHINE HCL 10 MG/1ml INJECTION SUBCUT ONE (14:15)
[2022-04-20] MEDS ORDERED: DexAMETHasone SOD PHOS 10MG/1ML VIAL INJ IV PRN (14:15)
[2022-04-20] MEDS ORDERED: ONDANSETRON HCL 4 MG/2 ML VIAL IV PRN ×2 (14:15)
[2022-04-20] MEDS ORDERED: HYDROmorphone HCL 2 MG/ML VL/or syr IV PRN (14:15)
[2022-04-20] MEDS ORDERED: hydrALAZINE HCL 20 MG/ML VL IV PRN (14:15)
[2022-04-20] MEDS ORDERED: LABETALOL HCL 5 MG/ML 4ML SYRINGE IV PRN (14:15)
[2022-04-20] MEDS ORDERED: MIDAZOLAM HCL 2MG/2ML 2ml VIAL (1mg/ml) IV PRN (14:15)
[2022-04-20] MEDS ORDERED: DexAMETHasone SOD PHOS 10MG/1ML VIAL INJ ONE (14:17)
[2022-04-20] MEDS ORDERED: KETOROLAC TROMETH 30 MG/ML 1ML VIAL ONE (14:20)
[2022-04-20] MEDS: ceFAZolin 1GM/50ML 50 ML IV SCH ×2 (15:00→20:22)
[2022-04-20] MEDS: LACTATED RINGER'S 1,000 ML IV SCH (18:17)
[2022-04-20] MEDS: SODIUM CHLOR 0.9% PF (SALINE LOCK) 10ML VIAL/SYR IV SCH (21:57)
[2022-04-21] VITALS (19 sets, daily range): BP systolic 100–146; BP diastolic 61–95
[2022-04-21] MEDS: LACTATED RINGER'S 1,000 ML IV SCH ×2 (01:00→09:23)
[2022-04-21] MEDS: ceFAZolin 1GM/50ML 50 ML IV SCH (03:24)
[2022-04-21] MEDS: LORazepam 0.5 MG TAB PO PRN (03:32)
[2022-04-21] MEDS: SODIUM CHLOR 0.9% PF (SALINE LOCK) 10ML VIAL/SYR IV SCH ×3 (05:22→21:55)
[2022-04-21 07:02] LABS: Basophils # (auto) 0.1 10 ^3/uL (0-0.2); Basophils % (auto) 0.5 % (0.0-2.0); Eosinophils # (auto) 0.3 10 ^3/uL (0-0.8); Eosinophils % (auto) 2.7 % (0.0-7.0); Hematocrit 31.6 % (41.0-53.0); Hemoglobin 9.9 g/dL (13.5-17.5); Lymphocytes # (auto) 0.7 10 ^3/uL (0.4-5.4); Lymphocytes % (auto) 5.4 % (10.0-50.0); Mean Corpuscular Hemoglobin 27.5 pg (28.0-32.0); Mean Corpuscular Hgb Conc. 31.3 g/dL (32.0-36.0); Mean Corpuscular Volume 87.8 fL (80.0-100.0); Monocytes # (auto) 0.8 10 ^3/uL (0-1.3); Monocytes % (auto) 6.6 % (0.0-12.0); Neutrophils # (auto) 10.3 10 ^3/uL (1.6-8.6); Neutrophils % (auto) 84.8 % (37.0-80.0); White Blood Cell 12.1 10^3/uL (4.4-10.8)
[2022-04-21 07:32] LABS: Albumin 2.6 g/dL (3.4-5.0); BUN/Creatinine Ratio 25.4; Calcium 8.7 mg/dL (8.5-10.1); Potassium 3.5 mmol/L (3.5-5.1)
[2022-04-21 07:36] LABS: Bilirubin, Total 0.5 mg/dL (0.2-1.0); Total Protein 6.9 g/dL (6.4-8.2)
[2022-04-21] MEDS: METOPROLOL TARTRATE 25 MG TAB PO SCH ×2 (09:22→21:54)
[2022-04-21] MEDS: FAMOTIDINE (10MG/ML) 2ML VL IV SCH (09:22)
[2022-04-21] MEDS: KETOROLAC TROMETH 30 MG/ML 1ML VIAL IV PRN (09:30)
[2022-04-21] MEDS ORDERED: ENOXAPARIN SOD 40 MG/0.4 ML SYRINGE SC ONE (10:45)
[2022-04-21] MEDS ORDERED: HALOPERIDOL LACTATE 5 MG/ML INJ VIAL IM PRN (12:15)
[2022-04-21] MEDS: HYDROcodone-ACET 5/325MG TAB PO PRN ×2 (13:30→20:28)
[2022-04-21] MEDS: HYDROmorphone HCL 2 MG/ML VL/or syr IV PRN (19:29)
[2022-04-21] MEDS: cefTRIAXone 1GM/50ML D5W 50 ML IV SCH (21:54)
[2022-04-22] MEDS: LORazepam 0.5 MG TAB PO PRN ×3 (00:09→21:30)
[2022-04-22] MEDS: HYDROmorphone HCL 2 MG/ML VL/or syr IV PRN ×3 (03:23→23:37)
[2022-04-22 05:00] VITALS: BP 134/69
[2022-04-22] MEDS: SODIUM CHLOR 0.9% PF (SALINE LOCK) 10ML VIAL/SYR IV SCH ×3 (05:53→21:30)
[2022-04-22] MEDS: KETOROLAC TROMETH 30 MG/ML 1ML VIAL IV PRN ×2 (05:53→21:32)
[2022-04-22 06:26] LABS: Hematocrit 29.5 % (41.0-53.0); Hemoglobin 9.4 g/dL (13.5-17.5); Mean Corpuscular Hemoglobin 28.2 pg (28.0-32.0); Mean Corpuscular Hgb Conc. 31.9 g/dL (32.0-36.0); Mean Corpuscular Volume 88.4 fL (80.0-100.0); Red Blood Cells 3.34 10^6/uL (4.5-5.90); Red Cell Distribution Width 15.1 % (11.8-14.3); White Blood Cell 9.3 10^3/uL (4.4-10.8)
[2022-04-22 06:37] LABS: Calcium 8.6 mg/dL (8.5-10.1); Potassium 3.8 mmol/L (3.5-5.1)
[2022-04-22 06:38] LABS: BUN/Creatinine Ratio 25.9
[2022-04-22] MEDS: HYDROcodone-ACET 5/325MG TAB PO PRN ×3 (06:41→18:07)
[2022-04-22 06:43] LABS: Basophils % (manual) 0 (0.0-2.0); Blast Cells 0; Metamyelocytes % 0; Myelocytes % 0; Promyelocytes % 0; Reactive Lymphocytes 0
[2022-04-22 08:02] LABS: Band Neutrophils % (manual) 1; Eosinophils % (manual) 5 (0-7); Lymphocytes % (manual) 7 (10.0-50.0); Monocytes % (manual) 7 (0-12)
[2022-04-22 09:00] VITALS: BP 121/62
[2022-04-22] MEDS: FAMOTIDINE (10MG/ML) 2ML VL IV SCH (11:47)
[2022-04-22] MEDS: METOPROLOL TARTRATE 25 MG TAB PO SCH ×2 (11:47→21:40)
[2022-04-22] MEDS: ENOXAPARIN SOD 40 MG/0.4 ML SYRINGE SC SCH (11:47)
[2022-04-22 13:00] VITALS: BP 148/103
[2022-04-22] MEDS: DOCUSATE SOD 100 MG CAP PO PRN (21:30)
[2022-04-22] MEDS: cefTRIAXone 1GM/50ML D5W 50 ML IV SCH (21:30)
[2022-04-22 22:00] VITALS: BP 138/74
[2022-04-23 05:00] VITALS: BP 125/97
[2022-04-23] MEDS: SODIUM CHLOR 0.9% PF (SALINE LOCK) 10ML VIAL/SYR IV SCH ×2 (05:04→15:54)
[2022-04-23] MEDS: HYDROcodone-ACET 5/325MG TAB PO PRN ×2 (05:05→16:44)
[2022-04-23 06:23] LABS: Basophils # (auto) 0.1 10 ^3/uL (0-0.2); Basophils % (auto) 0.7 % (0.0-2.0); Eosinophils # (auto) 0.6 10 ^3/uL (0-0.8); Eosinophils % (auto) 7.1 % (0.0-7.0); Hematocrit 26.5 % (41.0-53.0); Hemoglobin 8.8 g/dL (13.5-17.5); Lymphocytes # (auto) 1.1 10 ^3/uL (0.4-5.4); Lymphocytes % (auto) 13.9 % (10.0-50.0); Mean Corpuscular Hgb Conc. 33.2 g/dL (32.0-36.0); Mean Corpuscular Volume 87.5 fL (80.0-100.0); Monocytes # (auto) 0.9 10 ^3/uL (0-1.3); Monocytes % (auto) 11.8 % (0.0-12.0); Neutrophils # (auto) 5.4 10 ^3/uL (1.6-8.6); Neutrophils % (auto) 66.5 % (37.0-80.0); Red Blood Cells 3.03 10^6/uL (4.5-5.90); Red Cell Distribution Width 15.2 % (11.8-14.3); White Blood Cell 8.1 10^3/uL (4.4-10.8)
[2022-04-23 06:40] LABS: Calcium 8.6 mg/dL (8.5-10.1); Potassium 3.9 mmol/L (3.5-5.1)
[2022-04-23 06:42] LABS: BUN/Creatinine Ratio 29.9
[2022-04-23 09:00] VITALS: BP 143/79
[2022-04-23] MEDS: FAMOTIDINE (10MG/ML) 2ML VL IV SCH (10:29)
[2022-04-23] MEDS: ENOXAPARIN SOD 40 MG/0.4 ML SYRINGE SC SCH (10:29)
[2022-04-23] MEDS: KETOROLAC TROMETH 30 MG/ML 1ML VIAL IV PRN (10:30)
[2022-04-23] MEDS: METOPROLOL TARTRATE 25 MG TAB PO SCH (10:30)
[2022-04-23 13:00] VITALS: BP 138/82
[2022-04-23] MEDS: DOCUSATE SOD 100 MG CAP PO PRN (16:23)
== END 2022-04-23 20:25 | DRG 521 ==
LOC: ER 18:29 → OVERFLOW 22:27 → EAST 04-19 17:15 → TELE-EAST 04-20 18:48
PROVIDERS: ADMIT Nurse Practitioner Family; ATTEND Internal Medicine Pulmonary Disease
PROC: 0SRR0JZ Replacement of Right Hip Joint, Femoral Surface with Synthetic Substitute, Open Approach (ICD-10-PCS; principal; 2022-04-21)
DX: S72.001A Fracture of unspecified part of neck of right femur, initial encounter for closed fracture (principal); G93.41 Metabolic encephalopathy; D68.69 Other thrombophilia; E87.1 Hypo-osmolality and hyponatremia; I50.22 Chronic systolic (congestive) heart failure; R65.10 Systemic inflammatory response syndrome (SIRS) of non-infectious origin without acute organ dysfunction; M10.9 Gout, unspecified; I49.5 Sick sinus syndrome; I48.91 Unspecified atrial fibrillation; D72.829 Elevated white blood cell count, unspecified; N28.9 Disorder of kidney and ureter, unspecified; N40.0 Benign prostatic hyperplasia without lower urinary tract symptoms; D64.9 Anemia, unspecified; Z96.641 Presence of right artificial hip joint; E78.5 Hyperlipidemia, unspecified; I11.0 Hypertensive heart disease with heart failure; Z20.822 Contact with and (suspected) exposure to COVID-19; F03.90 Unspecified dementia, unspecified severity, without behavioral disturbance, psychotic disturbance, mood disturbance, and anxiety; Z82.3 Family history of stroke; Z83.3 Family history of diabetes mellitus; Z90.49 Acquired absence of other specified parts of digestive tract
CPT/HCPCS: 36415; 71045; 72170; 72192; 73502; 80048; 80053; 81001; 83880; 84484; 85007; 85025; 85027; 85610; 85730; 86850; 86900; 86901; 87081; 87086; 96361; 96365; 96375; 97110; 97116; 97163; 97530; G0378; J0690; J0696; J1100; J1885; J2250; J2405; J3490

== ENCOUNTER 2022-04-29 21:58 | Inpatient (IN) | payer OTHER, MEDICARE ==
[~2022-04-29] VITALS: Ht 172.7 cm; Wt 86.1 kg
[~2022-04-29 21:58] MED LIST changes: +DIGO0.12 PO
[2022-04-29] MEDS ORDERED: dilTIAZem 25 MG/5 ML VIAL IV ONE (23:00)
[2022-04-29] MEDS ORDERED: SODIUM CHLORIDE 0.9% 250 ML IV ONE (23:00)
[2022-04-29 23:13] LABS: Basophils # (auto) 0 10 ^3/uL (0-0.2); Basophils % (auto) 0.4 % (0.0-2.0); Eosinophils # (auto) 0.1 10 ^3/uL (0-0.8); Lymphocytes # (auto) 1.1 10 ^3/uL (0.4-5.4); Monocytes # (auto) 0.8 10 ^3/uL (0-1.3)
[2022-04-29 23:15] LABS: Eosinophils % (auto) 1.2 % (0.0-7.0); Hematocrit 28.4 % (41.0-53.0); Hemoglobin 9.1 g/dL (13.5-17.5); Lymphocytes % (auto) 11.4 % (10.0-50.0); Mean Corpuscular Hemoglobin 28.4 pg (28.0-32.0); Mean Corpuscular Hgb Conc. 32.2 g/dL (32.0-36.0); Mean Corpuscular Volume 88.1 fL (80.0-100.0); Monocytes % (auto) 8.4 % (0.0-12.0); Neutrophils # (auto) 7.8 10 ^3/uL (1.6-8.6); Neutrophils % (auto) 78.6 % (37.0-80.0); Red Blood Cells 3.22 10^6/uL (4.5-5.90); Red Cell Distribution Width 15.5 % (11.8-14.3); White Blood Cell 9.9 10^3/uL (4.4-10.8)
[2022-04-29 23:29] LABS: Albumin 2.7 g/dL (3.4-5.0); BUN/Creatinine Ratio 27.4; Calcium 9.6 mg/dL (8.5-10.1); Potassium 4.2 mmol/L (3.5-5.1)
[2022-04-29 23:38] LABS: Bilirubin, Total 0.5 mg/dL (0.2-1.0); Total Protein 7.1 g/dL (6.4-8.2)
[2022-04-30] MEDS ORDERED: dilTIAZem 125mg/125ml BAG KIT 100 ML IV SCH (01:15)
[2022-04-30] MEDS ORDERED: ONDANSETRON HCL 4 MG/2 ML VIAL IV PRN (03:15)
[2022-04-30] MEDS ORDERED: MORPHINE SULFATE INJ 2 MG/ml SYRG IV PRN (03:15)
[2022-04-30] MEDS ORDERED: NITROGLYCERIN 0.4 MG SL TAB SL PRN (03:15)
[2022-04-30] MEDS ORDERED: ACETAMINOPHEN 325 MG TAB PO PRN (03:15)
[2022-04-30] MEDS: HYDROcodone-ACET 5/325MG TAB PO PRN ×3 (03:47→23:51)
[2022-04-30 04:04] LABS: INR 1.29 (0.9-1.15)
[2022-04-30 04:50] LABS: Urine Bacteria NONE SEEN /hpf (None Seen); Urine Blood Negative /uL (Negative); Urine Specific Gravity 1.017 (1.001-1.035); Urine WBC 1 /hpf (0 - 3)
[2022-04-30] MEDS: PANTOPRAZOLE 40 MG TAB PO SCH (10:30)
[2022-04-30] MEDS ORDERED: LORAZEPAM 2 MG/ML IV PRN (10:30)
[2022-04-30] MEDS ORDERED: dilTIAZem HCL 180MG ER CAP PO ONE (10:30)
[2022-04-30] MEDS: APIXABAN 5 MG TAB PO SCH ×2 (10:30→21:05)
[2022-04-30] MEDS ORDERED: FUROSEMIDE 20 MG/2 ML VIAL IV ONE (10:45)
[2022-04-30 11:15] LABS: Magnesium 1.8 mg/dL (1.6-2.6)
[2022-04-30] MEDS: HALOPERIDOL LACTATE 5 MG/ML INJ VIAL IM PRN ×2 (11:54→19:15)
[2022-04-30 16:00] VITALS: BP 116/65
[2022-04-30] MEDS: FUROSEMIDE 20 MG/2 ML VIAL IV SCH (18:09)
[2022-04-30] MEDS: ATORVASTATIN 20 MG TAB PO SCH (21:04)
[2022-04-30 21:46] VITALS: BP 115/77
[2022-05-01] VITALS (7 sets, daily range): BP systolic 114–129; BP diastolic 68–75
[2022-05-01] MEDS: HYDROcodone-ACET 5/325MG TAB PO PRN ×5 (03:52→23:44)
[2022-05-01] MEDS: FUROSEMIDE 20 MG/2 ML VIAL IV SCH ×2 (05:19→17:17)
[2022-05-01 06:55] LABS: Basophils # (auto) 0 10 ^3/uL (0-0.2); Basophils % (auto) 0.4 % (0.0-2.0); Eosinophils # (auto) 0.3 10 ^3/uL (0-0.8); Monocytes # (auto) 0.7 10 ^3/uL (0-1.3); Monocytes % (auto) 6.8 % (0.0-12.0)
[2022-05-01 07:00] LABS: Hematocrit 28.8 % (41.0-53.0); Hemoglobin 9.3 g/dL (13.5-17.5); Lymphocytes # (auto) 1.2 10 ^3/uL (0.4-5.4); Lymphocytes % (auto) 12.5 % (10.0-50.0); Mean Corpuscular Hemoglobin 28.3 pg (28.0-32.0); Mean Corpuscular Hgb Conc. 32.5 g/dL (32.0-36.0); Mean Corpuscular Volume 87.2 fL (80.0-100.0); Neutrophils # (auto) 7.7 10 ^3/uL (1.6-8.6); Neutrophils % (auto) 77.3 % (37.0-80.0); Red Cell Distribution Width 15.6 % (11.8-14.3)
[2022-05-01 07:15] LABS: Calcium 9.5 mg/dL (8.5-10.1); Potassium 3.7 mmol/L (3.5-5.1)
[2022-05-01 07:22] LABS: Albumin 2.6 g/dL (3.4-5.0); Bilirubin, Total 0.8 mg/dL (0.2-1.0); Total Protein 7.1 g/dL (6.4-8.2)
[2022-05-01] MEDS: APIXABAN 5 MG TAB PO SCH ×2 (09:33→22:05)
[2022-05-01] MEDS: dilTIAZem HCL 180MG ER CAP PO SCH (09:33)
[2022-05-01] MEDS: PANTOPRAZOLE 40 MG TAB PO SCH (09:34)
[2022-05-01] MEDS ORDERED: MAGNESIUM SULFATE 1GM/100ML 100 ML IV ONE (13:45)
[2022-05-01] MEDS ORDERED: POTASSIUM EFFERVESENT TAB 25 MEQ PO ONE (13:45)
[2022-05-01] MEDS ORDERED: DIGOXIN (250MCG/ML) 2 ML AMPULE IV ONE (13:45)
[2022-05-01] MEDS: ATORVASTATIN 20 MG TAB PO SCH (22:05)
[2022-05-01] MEDS: HALOPERIDOL LACTATE 5 MG/ML INJ VIAL IM PRN (22:20)
[2022-05-02] VITALS (7 sets, daily range): BP systolic 115–139; BP diastolic 54–74
[2022-05-02] MEDS: HYDROcodone-ACET 5/325MG TAB PO PRN ×5 (04:20→22:18)
[2022-05-02 04:57] LABS: Hemoglobin 10.3 g/dL (13.5-17.5); White Blood Cell 10.6 10^3/uL (4.4-10.8)
[2022-05-02 05:01] LABS: Hematocrit 30.6 % (41.0-53.0); Mean Corpuscular Hemoglobin 29.3 pg (28.0-32.0); Mean Corpuscular Hgb Conc. 33.8 g/dL (32.0-36.0); Mean Corpuscular Volume 86.7 fL (80.0-100.0); Red Blood Cells 3.52 10^6/uL (4.5-5.90); Red Cell Distribution Width 15.5 % (11.8-14.3)
[2022-05-02 05:32] LABS: Basophils % (manual) 0 (0.0-2.0); Blast Cells 0; Monocytes % (manual) 0 (0-12); Reactive Lymphocytes 0
[2022-05-02] MEDS: FUROSEMIDE 20 MG/2 ML VIAL IV SCH ×2 (05:48→17:39)
[2022-05-02 06:18] LABS: BUN/Creatinine Ratio 19.3
[2022-05-02 08:05] LABS: Band Neutrophils % (manual) 1; Eosinophils % (manual) 2 (0-7); Lymphocytes % (manual) 20 (10.0-50.0); Metamyelocytes % 1; Myelocytes % 2; Promyelocytes % 1
[2022-05-02] MEDS: dilTIAZem HCL 180MG ER CAP PO SCH (08:48)
[2022-05-02] MEDS: APIXABAN 5 MG TAB PO SCH ×2 (08:48→22:17)
[2022-05-02] MEDS: PANTOPRAZOLE 40 MG TAB PO SCH (08:52)
[2022-05-02] MEDS: DIGOXIN 0.125 MG TAB PO SCH (09:06)
[2022-05-02] MEDS: ATORVASTATIN 20 MG TAB PO SCH (22:17)
[2022-05-03] VITALS (7 sets, daily range): BP systolic 112–130; BP diastolic 55–73
[2022-05-03] MEDS: HYDROcodone-ACET 5/325MG TAB PO PRN ×4 (05:15→22:06)
[2022-05-03] MEDS: FUROSEMIDE 20 MG/2 ML VIAL IV SCH (05:37)
[2022-05-03] MEDS: APIXABAN 5 MG TAB PO SCH ×2 (10:45→17:30)
[2022-05-03] MEDS: dilTIAZem HCL 180MG ER CAP PO SCH (10:45)
[2022-05-03] MEDS: DIGOXIN 0.125 MG TAB PO SCH (10:45)
[2022-05-03] MEDS: PANTOPRAZOLE 40 MG TAB PO SCH (10:46)
[2022-05-03] MEDS: ATORVASTATIN 20 MG TAB PO SCH (22:06)
[2022-05-04 05:00] VITALS: BP 126/71
[2022-05-04] MEDS: HYDROcodone-ACET 5/325MG TAB PO PRN ×3 (06:29→15:48)
[2022-05-04 08:00] VITALS: BP 112/60
[2022-05-04 09:00] VITALS: BP 112/60
[2022-05-04] MEDS: dilTIAZem HCL 180MG ER CAP PO SCH (10:30)
[2022-05-04] MEDS: APIXABAN 5 MG TAB PO SCH (10:31)
[2022-05-04] MEDS: PANTOPRAZOLE 40 MG TAB PO SCH (10:32)
[2022-05-04] MEDS: DIGOXIN 0.125 MG TAB PO SCH (10:32)
[2022-05-04 13:00] VITALS: BP 135/58
[2022-05-04] MEDS ORDERED: DOCUSATE SOD 100 MG CAP PO PRN (13:00)
[2022-05-04] MEDS: HALOPERIDOL LACTATE 5 MG/ML INJ VIAL IM PRN (15:35)
[2022-05-04 17:00] VITALS: BP 141/78
[2022-05-04 21:26] VITALS: BP 119/58
[2022-05-05] MEDS ORDERED: CEPH-510 PO (07:12)
== END 2022-05-04 21:10 | DRG 291 ==
LOC: ER 21:58 → EDBD 21:58 → EDUNIT# 21:58 → TELE 04-30 03:13 → TELE-WESTW 04-30 15:23
PROVIDERS: ADMIT Nurse Practitioner; ATTEND Internal Medicine Pulmonary Disease
DX: I13.0 Hypertensive heart and chronic kidney disease with heart failure and stage 1 through stage 4 chronic kidney disease, or unspecified chronic kidney disease (principal); E43 Unspecified severe protein-calorie malnutrition; I50.23 Acute on chronic systolic (congestive) heart failure; G93.41 Metabolic encephalopathy; D68.9 Coagulation defect, unspecified; I42.9 Cardiomyopathy, unspecified; I48.91 Unspecified atrial fibrillation; D63.8 Anemia in other chronic diseases classified elsewhere; E11.22 Type 2 diabetes mellitus with diabetic chronic kidney disease; E78.5 Hyperlipidemia, unspecified; Z20.822 Contact with and (suspected) exposure to COVID-19; N18.30 Chronic kidney disease, stage 3 unspecified; F03.90 Unspecified dementia, unspecified severity, without behavioral disturbance, psychotic disturbance, mood disturbance, and anxiety; K21.9 Gastro-esophageal reflux disease without esophagitis; M10.9 Gout, unspecified; N40.0 Benign prostatic hyperplasia without lower urinary tract symptoms; Z79.01 Long term (current) use of anticoagulants; Z95.0 Presence of cardiac pacemaker; Z68.28 Body mass index [BMI] 28.0-28.9, adult; Z82.3 Family history of stroke; Z83.3 Family history of diabetes mellitus; Z87.81 Personal history of (healed) traumatic fracture; Z90.49 Acquired absence of other specified parts of digestive tract
CPT/HCPCS: 36415; 70450; 71045; 71250; 72125; 74176; 80048; 80053; 80061; 80162; 81001; 82306; 83036; 83735; 83880; 84443; 84484; 85007; 85025; 85027; 85610; 85730; 87081; 93005; 93306; 96361; 96365; 96372; 96375; 96376; 97110; 97116; 97163; 97530; G0378; J2405

== ENCOUNTER 2022-05-05 02:56 | Emergency (ER) | payer OTHER, MEDICARE ==
[~2022-05-05] VITALS: Ht 167.6 cm; Wt 68.0 kg
[~2022-05-05 02:56] MED LIST changes: -PANT40T PO; -SERT50TA PO; -SUCR1TAB22 OR
[2022-05-05 04:05] LABS: Basophils # (auto) 0.1 10 ^3/uL (0-0.2); Basophils % (auto) 0.4 % (0.0-2.0); Eosinophils # (auto) 0.1 10 ^3/uL (0-0.8); Eosinophils % (auto) 1.2 % (0.0-7.0); Hematocrit 30.4 % (41.0-53.0); Hemoglobin 9.7 g/dL (13.5-17.5); Lymphocytes # (auto) 0.8 10 ^3/uL (0.4-5.4); Lymphocytes % (auto) 6.4 % (10.0-50.0); Mean Corpuscular Hemoglobin 27.8 pg (28.0-32.0); Mean Corpuscular Hgb Conc. 31.9 g/dL (32.0-36.0); Mean Corpuscular Volume 87.1 fL (80.0-100.0); Monocytes # (auto) 0.9 10 ^3/uL (0-1.3); Monocytes % (auto) 7.1 % (0.0-12.0); Neutrophils # (auto) 10.4 10 ^3/uL (1.6-8.6); Neutrophils % (auto) 84.9 % (37.0-80.0); Red Blood Cells 3.49 10^6/uL (4.5-5.90); Red Cell Distribution Width 15.9 % (11.8-14.3); White Blood Cell 12.3 10^3/uL (4.4-10.8)
[2022-05-05 04:22] LABS: Albumin 2.6 g/dL (3.4-5.0); Calcium 9.5 mg/dL (8.5-10.1); Potassium 4.5 mmol/L (3.5-5.1)
[2022-05-05 04:25] LABS: BUN/Creatinine Ratio 25.8; Bilirubin, Total 0.9 mg/dL (0.2-1.0); Total Protein 7.2 g/dL (6.4-8.2)
[2022-05-05] MEDS ORDERED: CEPH-510 PO (07:12)
[2022-05-05] MEDS ORDERED: cefTRIAXone 1GM/50ML D5W 50 ML IV ONE (07:15)
[2022-05-05] MEDS ORDERED: HYDROcodone-ACET 5/325MG TAB PO ONE (10:45)
[2022-05-05 13:11] VITALS: BP 131/68
== END 2022-05-05 13:20 | disposition home or self-care (01) ==
LOC: ER 02:56 → EDBD 02:56 → ER 13:17
DX: M79.10 Myalgia, unspecified site (principal); D72.829 Elevated white blood cell count, unspecified; I10 Essential (primary) hypertension; I48.91 Unspecified atrial fibrillation; E78.5 Hyperlipidemia, unspecified; M10.9 Gout, unspecified; Z90.49 Acquired absence of other specified parts of digestive tract; Z95.0 Presence of cardiac pacemaker; Z79.899 Other long term (current) drug therapy; W18.39XA Other fall on same level, initial encounter; Y93.89 Activity, other specified; Y92.89 Other specified places as the place of occurrence of the external cause; Y99.8 Other external cause status
CPT/HCPCS: 36415; 70450; 71045; 71250; 72125; 74176; 80053; 84484; 85025; 93005; 96365; 99285; J0696